=== PATIENT | female | born 1945 ===

== ENCOUNTER 2025-05-22 08:00 | Inpatient (IN) | payer OTHER ==
[~2025-05-22] VITALS: Ht 157.5 cm; Wt 59.0 kg
[2025-05-22] MEDS ORDERED: AMITRIPTYLINE H75 MG PO (09:44)
[2025-05-22] MEDS ORDERED: TENORMIN100 M1 PO (09:45)
[2025-05-22] MEDS ORDERED: NORVASC5 MG PO (09:45)
[2025-05-22] MEDS ORDERED: ENALAPRIL MALEA10 MG PO (09:45)
[2025-05-22] MEDS ORDERED: ZOCOR20 MG PO (09:46)
[2025-05-22] MEDS ORDERED: DOXAZOSIN MESYLA1 MG PO (09:46)
[2025-05-22] MEDS ORDERED: HYDROCHLOROTHIA25 MG PO (09:46)
[2025-05-22] MEDS ORDERED: OMEPRAZOLE-BIC1 EAC1 PO (09:47)
[2025-05-22] MEDS ORDERED: HORIZANT300 MG PO (09:47)
[2025-05-22] MEDS ORDERED: PROTONIX40 MG PO (09:47)
[2025-05-22 09:48] VITALS: BP 170/83
[2025-05-22 09:55] VITALS: BP 180/100
[2025-05-22 11:00] LABS: BASO % 0.3 % (0.1-1.2); EOS # 0.19 (0.04-0.54); EOS % 3.1 % (0.7-7.0); LYMPH # 2.36 (1.18-3.74); LYMPH % 39.1 % (19.3-53.1); MEAN PLATELET VOLUME 11.40 fl (9.4-12.4); MONO # 0.40 (0.24-0.82); MONO % 6.6 % (4.7-12.5); NEUT # 3.05 (1.56-6.13); NEUT % 50.6 % (34.0-71.1); RED CELL DISTRIBUTION WIDTH 13.6 % (11.6-14.4)
[2025-05-22 11:32] LABS: INR 1.04
[2025-05-22 11:36] LABS: URINE APPEARANCE Clear; URINE BILIRRUBIN Negative (NEGATIVE); URINE BLOOD Negative; URINE COLOR Yellow; URINE GLUCOSE Negative (NEGATIVE); URINE KETONE Negative (NEGATIVE); URINE LEUKOCYTE Moderate; URINE NITRATE Negative; URINE PROTEIN Negative (NEGATIVE); URINE UROBILINOGEN 1.0 E.U./dl
[2025-05-22 11:39] LABS: URINE BACTERIA 253.0 uL (0.0-1933); URINE EPITHELIAL CELLS 40.4 uL (0.0-38.8); URINE RBC 4.1 uL (0.0-20.8); URINE WBC 37.2 uL (0.0-23.2)
[2025-05-22 11:46] LABS: URINE CAST 0.00 uL (0.0-1.40)
[2025-05-22 11:48] LABS: BUN CREA RATIO 28.0 (7.0-25.0); CREATININE SERUM 0.61 mg/dL (0.55-1.02); GFR 94.86; GLUCOSE FASTING 104.0 mg/dL (65-100); OSMOLALITY SERUM 287.0 MOSM/KG (275-295)
[2025-05-29] MEDS ORDERED: CEFAZOLIN SODIUM 1,000 MG VIAL IV ONE (12:15)
[2025-05-29] MEDS ORDERED: KETOROLAC TROMETHAMINE 60 MG VIAL IM ONE (12:15)
[2025-05-29] MEDS ORDERED: MORPHINE SULFATE 4 MG/ML CARTRIDGE IV ONE (12:15)
[2025-05-29] MEDS ORDERED: TRANEXAMIC ACID 100MG/1ML (1000MG) AMPUL IV ONE ×2 (12:15)
[2025-05-29] MEDS ORDERED: GENTAMICIN SULFATE 40 MG/ML VIAL IV SCH (14:05)
[2025-05-29] MEDS ORDERED: SODIUM CHLORIDE 0.45 % 1,000 ML IV SCH (14:15)
[2025-05-29] MEDS ORDERED: ONDANSETRON HCL 2 MG/ML VIAL IV PRN (14:15)
[2025-05-29] MEDS ORDERED: MORPHINE SULFATE 4 MG/ML CARTRIDGE IV PRN (14:15)
[2025-05-29] MEDS ORDERED: SIMVASTATIN 20 MG TABLET PO SCH (17:00)
[2025-05-29] MEDS ORDERED: DOXAZOSIN MESYLATE 2 MG TABLET PO SCH (17:00)
[2025-05-29] MEDS ORDERED: BACITRACIN 28.35 GM OINT.TUBE TOP SCH (17:00)
[2025-05-29] MEDS ORDERED: CEFAZOLIN SODIUM 1,000 MG VIAL IV SCH (18:00)
[2025-05-29 19:10] VITALS: BP 179/81; O2SAT 96
[2025-05-29] MEDS ORDERED: ENALAPRILAT DIHYDRATE 1.25 MG/ML VIAL IV PRN (19:30)
[2025-05-29 22:07] VITALS: BP 169/74
[2025-05-30] VITALS: BP 127/67; O2SAT 98
[2025-05-30 07:27] LABS: BASO % 0.2 % (0.1-1.2); EOS # 0.00 (0.04-0.54); EOS % 0.0 % (0.7-7.0); LYMPH # 1.03 (1.18-3.74); LYMPH % 11.1 % (19.3-53.1); MEAN PLATELET VOLUME 11.10 fl (9.4-12.4); MONO # 0.58 (0.24-0.82); MONO % 6.3 % (4.7-12.5); NEUT # 7.62 (1.56-6.13); NEUT % 82.2 % (34.0-71.1); RED CELL DISTRIBUTION WIDTH 13.4 % (11.6-14.4)
[2025-05-30] MEDS ORDERED: ACETAMINOPHEN WITH CODEINE 1 UDTAB TABLET PO PRN (08:15)
[2025-05-30 08:33] VITALS: BP 182/76; O2SAT 98
[2025-05-30] MEDS ORDERED: IRON FUM,PS/FOLIC/BCOMP,C NO.9 1 CAP CAPSULE PO SCH (09:00)
[2025-05-30] MEDS ORDERED: ENALAPRIL MALEATE 10 MG TABLET PO SCH (09:00)
[2025-05-30] MEDS ORDERED: ATENOLOL 100 MG TABLET PO SCH (09:00)
[2025-05-30] MEDS ORDERED: HYDROCHLOROTHIAZIDE 25 MG TABLET PO SCH (09:00)
[2025-05-30] MEDS ORDERED: AMLODIPINE BESYLATE 5 MG TABLET PO SCH (09:00)
[2025-05-30] MEDS ORDERED: SENNA/DOCUSATE SODIUM 1 TAB TABLET PO SCH (09:00)
[2025-05-30] MEDS ORDERED: RIVAROXABAN 10 MG TAB PO SCH (09:00)
[2025-05-30 10:46] VITALS: BP 152/66; O2SAT 96
[2025-05-30 16:55] VITALS: BP 143/63; O2SAT 95
[2025-05-30] MEDS ORDERED: CELECOXIB 200 MG CAPSULE PO SCH (17:00)
[2025-05-30] MEDS ORDERED: SULFAMETHOXAZOLE/TRIMETHOPRIM DS 1 TAB PO SCH (21:00)
[2025-05-31 02:25] VITALS: BP 147/82; O2SAT 96
[2025-05-31] MEDS ORDERED: Septra Ds Tablet PO (06:37)
[2025-05-31] MEDS ORDERED: INTEGRA PLUS C1 EACH PO (06:37)
[2025-05-31] MEDS ORDERED: XARELTO10 MG PO (06:38)
[2025-05-31] MEDS ORDERED: ACETAMINOPHEN-1 EAC2 PO (06:38)
[2025-05-31 06:55] LABS: BASO % 0.2 % (0.1-1.2); EOS # 0.00 (0.04-0.54); EOS % 0.0 % (0.7-7.0); LYMPH # 1.01 (1.18-3.74); LYMPH % 9.7 % (19.3-53.1); MEAN PLATELET VOLUME 11.90 fl (9.4-12.4); MONO # 0.86 (0.24-0.82); MONO % 8.3 % (4.7-12.5); NEUT # 8.49 (1.56-6.13); NEUT % 81.5 % (34.0-71.1); RED CELL DISTRIBUTION WIDTH 12.9 % (11.6-14.4)
[2025-05-31 08:00] VITALS: BP 153/83; O2SAT 95
[2025-05-31] MEDS ORDERED: VITAMIN B COMPLEX/LYSINE 15 ML BLIST.PACK PO SCH (17:00)
== END 2025-05-31 15:38 | DRG 470 ==
LOC: SURH 05-29 08:00 → O/R 05-29 09:00 → SURG 05-29 09:00 → SURH 05-29 11:30 → SURG 05-29 14:51
PROVIDERS: ADMIT Orthopaedic Surgery Sports Medicine; ATTEND Orthopaedic Surgery Sports Medicine
PROC: 0SRC0J9 Replacement of Right Knee Joint with Synthetic Substitute, Cemented, Open Approach (ICD-10-PCS; principal; 2025-05-29 11:30)
DX: M17.11 Unilateral primary osteoarthritis, right knee (principal); Z96.651 Presence of right artificial knee joint